=== PATIENT | male | born 1990 | race Caucasian/White ===

== ENCOUNTER 2016-09-23 18:26 | Emergency (ER) | payer OTHER ==
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
--- NOTE | 2016-09-23 19:26 | ED ORDER SUMMARY ---
..... Patient: MINDA GIBBS OrderSheet [facility] VisitID: [id number] [place] [address] 25y, M Registration Date/Time: 09/23/2016 ORDER SHEET Weight: 74.8 kg (stated) Allergies: No Known Drug Allergy GENERAL ORDERS: CT Head wo Cont Urgent (18:28 09/23/2016 EKoroleva P.A.-C) (Ack 18:30 KHoerner) (18:46 MCampbell) Cervical Spine 2 or 3V Urgent (18:28 09/23/2016 EKoroleva P.A.-C) (Ack 18:30 KHoerner) (18:46 MCampbell) Chest 2V Urgent (18:28 09/23/2016 EKoroleva P.A.-C) (Ack 18:30 KHoerner) (18:46 MCampbell) Vitals (19:25 09/23/2016 EKoroleva P.A.-C) (Ack 19:25 SRedmond) (19:36 TBowen R.N.) MEDICATION ORDERS: IV FLUIDS: ORDER SHEET NOTES: [Electronically signed by Ana María Mills R.N. (19:37 09/23/2016)] [Electronically signed by Yessenia Calabrese P.A.-C (00:10 09/24/2016)] [Electronically locked/signed by Ana María Mills R.N. (19:37 09/23/2016)]
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
--- NOTE | 2016-09-23 19:26 | ED ORDER SUMMARY ---
..... Patient: MINDA GIBBS OrderSheet [facility] VisitID: [id number] [place] [address] 25y, M Registration Date/Time: 09/23/2016 ORDER SHEET Weight: 74.8 kg (stated) Allergies: No Known Drug Allergy GENERAL ORDERS: CT Head wo Cont Urgent (18:28 09/23/2016 EKoroleva P.A.-C) (Ack 18:30 KHoerner) (18:46 MCampbell) Cervical Spine 2 or 3V Urgent (18:28 09/23/2016 EKoroleva P.A.-C) (Ack 18:30 KHoerner) (18:46 MCampbell) Chest 2V Urgent (18:28 09/23/2016 EKoroleva P.A.-C) (Ack 18:30 KHoerner) (18:46 MCampbell) Vitals (19:25 09/23/2016 EKoroleva P.A.-C) (Ack 19:25 SRedmond) (19:36 TBowen R.N.) MEDICATION ORDERS: IV FLUIDS: ORDER SHEET NOTES: [Electronically signed by Ana María Mills R.N. (19:37 09/23/2016)] [Electronically signed by Yessenia Calabrese P.A.-C (00:10 09/24/2016)] [Electronically locked/signed by Ana María Mills R.N. (19:37 09/23/2016)]
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
--- NOTE | 2016-09-23 21:19 | DIAGNOSTIC IMAGING REPORT ---
PROCEDURE: XR CHEST 2 VIEW INDICATION: CHEST PAIN TECHNIQUE: Two views. COMPARISON: None. FINDINGS: The cardiomediastinal contour and central vasculature are within normal limits. The lungs are clear without focal consolidation, pleural effusion, or pneumothorax. The visualized osseous structures are intact. IMPRESSION: 1. Normal chest. No radiographic evidence of acute trauma.
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
--- NOTE | 2016-09-24 00:11 | ED MED RECONCILIATION SUMMARY ---
Patient: MINDA GIBBS Medication Reconciliation Report [facility] VisitID: [id number] [address] [place] [address] 25y, M Registration Date/Time: 09/23/2016 Weight: 74.8 kg Height/Length: 67 in. BMI: 25.9 ALLERGIES: No Known Drug Allergy The patient's Home Medications are listed below: NONE. The source(s) of the original Home Medication information: Not obtained. The following Medications were given to the patient in the Emergency Department: None. The following Medications were prescribed to the patient: None.
--- NOTE | 2016-09-24 00:11 | ED MED RECONCILIATION SUMMARY ---
Patient: MINDA GIBBS Medication Reconciliation Report [facility] VisitID: [id number] [address] [address] 25y, M Registration Date/Time: 09/23/2016 Weight: 74.8 kg Height/Length: 67 in. BMI: 25.9 ALLERGIES: No Known Drug Allergy The patient's Home Medications are listed below: NONE. The source(s) of the original Home Medication information: Not obtained. The following Medications were given to the patient in the Emergency Department: None. The following Medications were prescribed to the patient: None.
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
--- NOTE | 2016-09-24 00:11 | ED MAR SUMMARY ---
..... Medication Administration Record [facility] [address] [place], [place] [id number] Patient: MINDA GIBBS Visit ID: [id number] 25y, M Weight: 74.8 kg Height/Length: 67 in BMI: 25.9 ALLERGIES: No Known Drug Allergy
--- NOTE | 2016-09-24 00:11 | ED MAR SUMMARY ---
..... Medication Administration Record [facility] [address] [place], [place] [id number] Patient: MINDA GIBBS Visit ID: [id number] 25y, M Weight: 74.8 kg Height/Length: 67 in BMI: 25.9 ALLERGIES: No Known Drug Allergy
== END 2016-09-23 19:35 ==
LOC: ED SRH 18:26
DX: S16.1XXA Strain of muscle, fascia and tendon at neck level, initial encounter (principal); S09.90XA Unspecified injury of head, initial encounter; V43.52XA Car driver injured in collision with other type car in traffic accident, initial encounter; Y93.89 Activity, other specified; Y92.410 Unspecified street and highway as the place of occurrence of the external cause; Y99.8 Other external cause status; Z02.89 Encounter for other administrative examinations